=== PATIENT | male | born 1950 | race African-American/Black ===

== ENCOUNTER 2023-02-02 15:38 | Emergency (ER) | payer MEDICARE, MEDICAID ==
[~2023-02-02] VITALS: Ht 167.6 cm; Wt 63.1 kg
[~2023-02-02 15:38] MED LIST: ASPI81 PO; CHLO5CAP4 PO; FURO20 PO; LOSA25TA2 PO; METO25 PO
[2023-02-02 16:06] VITALS: TEMP 97.9
[2023-02-02 16:55] LABS: BASOPHILS % (AUTO) 0.4 % (0.0-2.0); EOSINOPHILS % (AUTO) 0 % (1.0-6.0); HEMATOCRIT 37.2 % (41-53); HEMOGLOBIN 12.4 g/dL (13.5-17.5); LYMPHOCYTES # (AUTO) 1.2 K/uL (1.0-4.8); LYMPHOCYTES % (AUTO) 13.3 % (22.0-44.0); MEAN CORPUSCULAR HEMOGLOBIN 27.7 pg (26.0-34.0); MEAN CORPUSCULAR HGB CONC 33.3 G/dL (31.0-37.0); MEAN CORPUSCULAR VOLUME 83 fL (80-100); MONOCYTES # (AUTO) 0.5 K/uL (0.1-1.0); MONOCYTES % (AUTO) 5.8 % (2.0-9.0); NEUTROPHILS % (AUTO) 80.5 % (40.0-70.0); PLATELET COUNT (AUTO) 166 K/uL (150-450); RED BLOOD CELL COUNT(AUTO) 4.48 MIL/uL (4.50-5.90); RED CELL DISTRIBUTION WIDTH 13.5 % (11.5-14.5)
[2023-02-02 17:02] LABS: ANION GAP 11 mmol/L (8-16); CALCIUM, TOTAL 9.7 mg/dL (8.8-10.5); CARBON DIOXIDE 28 mmol/L (22-29); CHLORIDE 100 mmol/L (98-107); CREATININE 1.63 mg/dL (0.60-1.30); GLOMERULAR FILTR. RATE CALC 51 mL/min (>60); GLUCOSE,RANDOM 109 mg/dL (70-110); POTASSIUM 3.8 mmol/L (3.5-5.1); SODIUM SERUM 139 mmol/L (136-145)
[2023-02-02 17:08] LABS: ALANINE AMINOTRANSFERASE 20 U/L (12-78); ALBUMIN 3.3 g/dL (3.4-5.0); ALKALINE PHOSPHATASE 140 U/L (46-116); ASPARTATE AMINOTRANSFERASE 23 U/L (15-37); BILIRUBIN,TOTAL 0.5 mg/dL (0.1-1.0); LIPASE 44 U/L (16-77); TOTAL PROTEIN, SERUM 7.4 g/dL (6.4-8.2)
[2023-02-02 17:11] LABS: B-TYPE NATRIURETIC PEPTIDE 357 pg/mL (0-100)
[2023-02-02 19:25] LABS: COVID AG,FIA SOURCE NASOPHARYNGEAL
[2023-02-03 09:00] VITALS: BP 133/92; PULSE 87; RESP 16
== END 2023-02-03 10:30 | disposition home or self-care (01) ==
LOC: EMS 15:39
DX: R53.1 Weakness (principal); R62.7 Adult failure to thrive; I11.0 Hypertensive heart disease with heart failure; I50.9 Heart failure, unspecified; E44.0 Moderate protein-calorie malnutrition; N18.9 Chronic kidney disease, unspecified; J18.9 Pneumonia, unspecified organism; E87.1 Hypo-osmolality and hyponatremia; Z20.822 Contact with and (suspected) exposure to COVID-19; Z59.00 Homelessness unspecified
CPT/HCPCS: 99285; 87426; 80053; 83690; 83880; 84484; 85025; 36415; 93005; G0480

== ENCOUNTER 2023-02-03 15:30 | Emergency (ER) | payer MEDICARE, MEDICAID ==
[~2023-02-03] VITALS: Ht 165.1 cm; Wt 63.6 kg
[2023-02-03 15:41] VITALS: BP 149/59; PULSE 102; RESP 16; TEMP 98.3
== END 2023-02-03 17:05 | disposition home or self-care (01) ==
LOC: EMS 15:33
DX: I13.0 Hypertensive heart and chronic kidney disease with heart failure and stage 1 through stage 4 chronic kidney disease, or unspecified chronic kidney disease (principal); N18.9 Chronic kidney disease, unspecified; M54.9 Dorsalgia, unspecified; Z59.00 Homelessness unspecified; Z98.890 Other specified postprocedural states
CPT/HCPCS: 99281; Z7502